=== PATIENT | female | born 1960 | race Caucasian/White ===

== ENCOUNTER → 2023-10-16 | Outpatient (CLI) | payer BC ==
--- NOTE | 2023-10-16 10:46 | CA ---
Stress Echo Report Mariia Hernandez Age: 63 Gender: F : 1960 Exam Date: 10/16/2023 10:01 Exam Location: [place] [facility] Ht (in): 63 Wt (lb): 135 Ordering Physician: Tereso Goodman DO Referring Physician: Allyssa Aparicio [facility] [employer]: Mavis Chanel RDCS Technologist Procedure CPT: Indication: R53.83 fatigue ICD-9 Codes: Rhythm: Patient History: PALPITATIONS, HTN, HYPERCHOLESTEROLEMIA, FAMILY HX OF HEART DISEASE Cardiac Medications: Medications in past 24 hours: Contrast: N/A Stress Results Protocol: Christian Total dose(mL): Exercise Duration (min:sec): 9:[address] Depression (mm): Angina Score: Barger Score: METS: 10.5 Resting HR: 96 Resting BP: 148 / 87 Peak HR: 154 Peak BP: 198 / 99 Max Predicted HR: 157 98 % Max Predicted HR Target HR: 133 Double Product: [id number] Stress Summary: BP Response: Reason for Termination: MAX EXERTION/TARGET HR Cardiac Symptoms: NO SYMPTOMS ECG Analysis Resting ECG: Normal sinus rhythm normal axis normal intervals Stress ECG: Exercised on Christian protocol for 9 minutes achieving 85% of predicted maximal heart rate without chest pain or diagnostic ST segment depression Arrhythmia: Echo Analysis Resting Echo: Normal left ventricular size wall motion systolic function Peak Echo Analysis: Normal hyperdynamic response MEASUREMENTS (Male/Female) Normal Values CONCLUSIONS [email or web address] tolerance Negative stress test by EKG criteria Negative stress echo Dr. Jean Paul Simon MD (Electronically Signed) Final Date: 16 October 2023 10:44
== END | disposition home or self-care (01) ==
LOC: RADNMMAIN 09:23
PROVIDERS: ATTEND Family Medicine
DX: R53.83 Other fatigue
CPT/HCPCS: 93351